=== PATIENT | female | born 1965 | race Caucasian/White ===

== ENCOUNTER 2017-08-18 09:05 | Emergency (ER) | payer BC ==
[2017-08-18 09:13] VITALS: BP 188/112
--- NOTE | 2017-08-18 09:32 | ED Physician Documentation ---
PD HPI SKIN - Stated complaint Stated Complaint: INFECTED TATTOO AREA - Chief complaint Chief Complaint: Ext Problem - History obtained from History obtained from: Patient, Family - History of Present Illness Timing - onset: How many weeks ago (1) Timing - details: Gradual onset, Still present Location: RUE Quality / character: Itchy, Discolored, Raised Similar symptoms before: Has not had sx before Recently seen: Not recently seen - Additional information Additional information: Patient is a 51 year old female with no significant past medical history who is presenting to the emergency department for skin rash. patient states that she was tattooed about a few weeks ago. patient did her normal care and it seemed fine. Patient states that for the last week she has had a rash over the tattoo area. patient states that it it itchy, but not painful. Patient denies any fevers or chills. Review of Systems Constitutional: denies: Fever, Chills Eyes: reports: Reviewed and negative Ears: reports: Reviewed and negative Nose: reports: Reviewed and negative Throat: reports: Reviewed and negative Cardiac: reports: Reviewed and negative Respiratory: denies: Dyspnea, Wheezing GI: reports: Reviewed and negative Skin: reports: Rash Musculoskeletal: denies: Extremity pain Neurologic: denies: Generalized weakness, Focal weakness, Numbness Immunocompromised: denies: Immunocompromised PD PAST MEDICAL HISTORY - Past Surgical History Past Surgical History: No - Present Medications Home Medications: Ambulatory Orders Medication Instructions Recorded Confirmed Hydrocortisone 1% Oint 1 applic TOP TID #28 gm 08/18/17 [Hydrocortisone] - Allergies Allergies/Adverse Reactions: Allergies Allergy/AdvReac Type Severity Reaction Status Date / Time No Known Drug Allergies Allergy Verified 01/29/16 10:40 - Social History Does the pt smoke?: No Smoking Status: Never smoker PD ED PE NORMAL - Vitals Vital signs reviewed: Yes - General General: Alert and oriented X 3, No acute distress - HEENT HEENT: Atraumatic, PERRL, Pharynx benign - Neck Neck: Supple, no meningeal sign, No JVD - Cardiac Cardiac: RRR, No murmur - Respiratory Respiratory: No respiratory distress, Clear bilaterally - Abdomen Abdomen: Soft, Non tender, Non distended - Neuro Neuro: Alert and oriented X 3, No motor deficit, No sensory deficit, Normal speech PD ED PE EXPANDED - Derm Derm: Rash (raised rash on right forearm over the tattooed area, consistent with dermatitis, unlikely infectious in nature.) Results - Vitals Vitals: Vital Signs - 24 hr 08/18/17 09:08 Temperature 36.5 C Heart Rate 92 Respiratory 17 Rate Blood Pressure 188/112 H O2 Saturation 100 Oxygen O2 Source Room air PD MEDICAL DECISION MAKING - ED course Complexity details: reviewed old records, re-evaluated patient, considered differential, d/w patient, d/w family ED course: patient was seen and examined at bedside. Patient's findings were consistent with a contact dermatitis, and did not appear to be infectious in nature. Prescriptions were written. Patient required no further work and was stable for discharge with outpatient follow up. Departure - Departure Disposition: 01 Home, Self Care Clinical Impression: Dermatitis Condition: Good Instructions: ED Dermatitis Non Specific Rash Follow-Up: Sandi Collazo ND [Primary Care Provider] - Within 1 week Prescriptions: Hydrocortisone 1% Oint [Hydrocortisone] 1 applic TOP TID #28 gm Comments: Your symptoms today are being caused by dermatitis. You should apply steroid cream to half of the lesion, and topical benadryl cream to the other section to see what has a better response. You should call your doctor today to schedule a follow up appointment to re-evaluate the wound. You may return to the emergency department at any time for new, worsening or uncontrollable symptoms. Discharge Date/Time: 08/18/17 09:38
== END 2017-08-18 09:38 | disposition home or self-care (01) ==
LOC: ED 09:05
DX: L25.9 Unspecified contact dermatitis, unspecified cause (principal)
CPT/HCPCS: 99283

== ENCOUNTER 2019-04-07 11:45 | Outpatient (CLI) | payer BC | END 2019-04-07 11:46 | disposition critical access hospital (66) | LOC: EMS 11:45 | PROVIDERS: ATTEND Surgery | DX: M79.604 Pain in right leg (principal); R20.2 Paresthesia of skin | CPT/HCPCS: A0425; A0429 ==

== ENCOUNTER 2019-04-07 12:17 | Emergency (ER) | payer BC ==
[2019-04-07] MEDS ORDERED: KETOROLAC 30 MG/ML VIAL IVP STA (12:29)
--- NOTE | 2019-04-07 12:33 | ED Physician Documentation ---
PD HPI BACK PAIN - Stated complaint Stated Complaint: BACK PX - History obtained from History obtained from: Patient, EMS - History of Present Illness Timing - onset: Today (53-year-old woman without any significant past medical history or history of back issues with this starting to feel some anterior right thigh soreness this morning without Any specific injury. It progressed and she got in the shower to see if he would help at which point her leg kind of gave out from under her and she could not walk. She really has minimal pain at rest only hurts if she sits up or moves. The pain is really more in the thigh than the back. She denies weakness, numbness of the legs or saddle area, she did have some tingling in her hands when the pain was severe. No fevers. No recent illnesses.) Review of Systems Ten Systems: 10 systems reviewed and negative Constitutional: denies: Fever, Chills GI: denies: Abdominal Pain, Nausea, Vomiting : denies: Dysuria, Frequency PD PAST MEDICAL HISTORY - Past Medical History Past Medical History: No - Past Surgical History Past Surgical History: No - Present Medications Home Medications: Ambulatory Orders Medication Instructions Recorded Confirmed Gabapentin [Neurontin] 300 mg PO TID #60 capsule 04/07/19 Ibuprofen [Motrin] 800 mg PO Q8H PRN #30 tablet 04/07/19 Progesterone, Micronized 100 mg PO 04/07/19 [Progesterone] - Allergies Allergies/Adverse Reactions: Allergies Allergy/AdvReac Type Severity Reaction Status Date / Time No Known Drug Allergies Allergy Verified 01/29/16 10:40 - Social History Does the pt smoke?: No Smoking Status: Never smoker - Family History Family history: reports: Non contributory PD ED PE NORMAL - Vitals Vital signs reviewed: Yes - General General: Alert and oriented X 3, Other (She is comfortable laying in bed but is resistant to any motion because she is worried that it will hurt.) - Cardiac Cardiac: RRR, No murmur - Respiratory Respiratory: No respiratory distress, Clear bilaterally - Abdomen Abdomen: Other (Very mild left lower pelvic tenderness) - Back Back: No CVA TTP, No spinal TTP, Other (There is no specific tenderness of the spine or low back.) - Extremities Extremities: Other (I am unable to elicit any tenderness of the leg, hip, calf. There is no swelling or asymmetric edema. She has pain more than weakness that limits her in knee flexion. She has equal and symmetric strength at the ankles both in flexion and extension. She has a diminished but not absent right L4 reflex compared to the left but Achilles reflexes are symmetric.) - Neuro Neuro: Alert and oriented X 3, Normal speech - Psych Psych: Normal mood, Normal affect Results - Vitals Vitals: Vital Signs - 24 hr 04/07/19 12:33 Temperature 37.0 C Heart Rate 99 Respiratory 18 Rate Blood Pressure 165/92 H O2 Saturation 97 Oxygen O2 Source Room air - Labs Labs: Laboratory Tests 04/07/19 04/07/19 12:39 12:39 WBC 5.7 RBC 4.46 Hgb 14.4 Hct 42.6 MCV 95.5 MCH 32.3 H MCHC 33.8 RDW 12.9 Plt Count 278 MPV 9.0 Neut # (Auto) 3.9 Lymph # (Auto) 1.1 L Cassia # (Auto) 0.5 Eos # (Auto) 0.1 Baso # (Auto) 0.1 Absolute Nucleated RBC 0.00 Nucleated RBC % 0.0 Sodium 141 Potassium 3.9 Chloride 103 Carbon Dioxide 24 Anion Gap 14.0 H BUN 10 Creatinine 0.5 Estimated GFR (MDRD) 130 Glucose 100 Calcium 9.7 Total Bilirubin 1.2 H AST 42 ALT 52 Alkaline Phosphatase 71 Total Protein 8.3 H Albumin 4.6 Globulin 3.7 Albumin/Globulin Ratio 1.2 Lipase 38 - Rads (name of study) CT L spine Radiology: EMP read contemporaneously (Right L4-L5 foraminal/extraforaminal protrusion abutting/impinging the right L4 nerve root.) PD MEDICAL DECISION MAKING - ED course ED course: This is a 53-year-old woman with acute leg pain most consistent with a lumbar disc herniation noting a diminished L4 reflex on the right confirmed on CT. After Toradol she was pain-free and functional. Departure - Departure Disposition: 01 Home, Self Care Clinical Impression: Lumbosacral radiculopathy at L4 Condition: Good Record reviewed to determine appropriate education?: Yes Instructions: Lumbar Radiculopathy Prescriptions: Gabapentin [Neurontin] 300 mg PO TID #60 capsule Ibuprofen [Motrin] 800 mg PO Q8H PRN #30 tablet PRN Reason: PAIN &/OR FEVER Comments: Follow-up with your primary care physician, start with physical therapy. If that is not successful for improving your pain after while her/she may refer you to a spinal specialist. Your blood pressure was elevated today on check into the emergency department. This does not mean that you have hypertension, it is a common phenomenon to come to the emergency department and have elevated blood pressure. I recommend that you see your primary care physician within the week to have it rechecked when you are feeling better. Forms: Activity restrictions
[2019-04-07 12:46] LABS: BASOPHILS # (AUTO) 0.1 10^3/uL (0.0-0.1); BASOPHILS % (AUTO) 2.1 %; EOSINOPHILS # (AUTO) 0.1 10^3/uL (0.0-0.7); EOSINOPHILS % (AUTO) 1.2 %; HGB - HEMOGLOBIN 14.4 g/dL (12.0-16.0); LYMPHOCYTES # (AUTO) 1.1 10^3/uL (1.5-3.5); MEAN CORPUSCULAR HEMOGLOBIN 32.3 pg (27.0-31.0); MEAN CORPUSCULAR HGB CONC 33.8 g/dL (32.0-36.0); MEAN CORPUSCULAR VOLUME 95.5 fL (81.0-99.0); MONOCYTES # (AUTO) 0.5 10^3/uL (0.0-1.0); MONOCYTES % (AUTO) 9.1 %; NEUTROPHILS # (AUTO) 3.9 10^3/uL (1.5-6.6); NEUTROPHILS % (AUTO) 68.1 %; PLT - PLATELET COUNT 278 10^3/uL (130-450); RED BLOOD COUNT 4.46 10^6/uL (4.20-5.40); RED CELL DISTRIBUTION WIDTH 12.9 % (12.0-15.0); WHITE BLOOD COUNT 5.7 x10^3/uL (4.8-10.8)
[2019-04-07 12:57] LABS: ALBUMIN 4.6 g/dL (3.2-5.5); ALBUMIN/GLOBULIN RATIO 1.2 (1.0-2.2); BILIRUBIN,TOTAL 1.2 mg/dL (0.2-1.0); CALCIUM 9.7 mg/dL (8.5-10.3); CREATININE 0.5 mg/dL (0.4-1.0); TOTAL PROTEIN 8.3 g/dL (6.7-8.2)
--- NOTE | 2019-04-07 13:34 | CT Report ---
Reason: back/leg pain, R L4 diminished reflex Procedure Date: 04/07/2019 Accession Number: [id number] / [id number] Procedure: CT - LUMBAR SPINE WO CPT Code: FULL RESULT: EXAM: CT LUMBAR SPINE WITHOUT CONTRAST EXAM DATE: 04/07/2019 01:04 PM. CLINICAL HISTORY: Back/leg pain, R L4 diminished reflex. COMPARISONS: None. TECHNIQUE: Thin-section axial images were acquired of the lumbar spine from T12 to S1 without contrast. Post-processing: Coronal and sagittal reformats. Other: None. In accordance with CT protocol optimization, one or more of the following dose reduction techniques were utilized for this exam: automated exposure control, adjustment of mA and/or KV based on patient size, or use of iterative reconstructive technique. FINDINGS: Alignment: No scoliosis or spondylolisthesis. Bones: Five jje-[id number] lumbar vertebral bodies are present. No fractures or bone lesions. Disk Levels/Facets: T12-L1: Unremarkable. L1-L2: Unremarkable. L2-L3: Unremarkable. L3-L4: Unremarkable. L4-L5: Right foraminal/extraforaminal protrusion measures 18 mm transverse, 5 mm in thickness, abutting/impinging on the exiting right L4 nerve root, correlate with right L4 radiculopathy. L5-S1: Unremarkable. Musculature: Normal. No fatty atrophy. Other: The visualized retroperitoneum is unremarkable. IMPRESSION: Right L4-L5 foraminal/extraforaminal protrusion abutting/impinging the right L4 nerve root, could be correlated with right L4 radiculopathy. RADIA
[2019-04-07 14:01] VITALS: BP 140/88
== END 2019-04-07 14:01 | disposition home or self-care (01) ==
LOC: EDUNIT# → ED 12:17
DX: M54.17 Radiculopathy, lumbosacral region (principal); R03.0 Elevated blood-pressure reading, without diagnosis of hypertension
CPT/HCPCS: 36415; 72131; 80053; 83690; 85025; 96374; 99283

== ENCOUNTER 2019-08-22 14:18 | Emergency (ER) | payer BC ==
[2019-08-22 14:35] VITALS: BP 167/100
== END 2019-08-22 15:50 | disposition left against medical advice (07) ==
LOC: ED 14:18
DX: Z53.21 Procedure and treatment not carried out due to patient leaving prior to being seen by health care provider (principal)

== ENCOUNTER 2023-01-04 08:35 | Emergency (ER) | payer BC, OTHER ==
--- NOTE | 2023-01-04 09:11 | ED Physician Documentation ---
PD HPI LOWER EXT INJURY - Stated complaint Stated Complaint: LT ANKLE INJ - Chief complaint Chief Complaint: Ext Problem - History obtained from History obtained from: Patient, Family - History of Present Illness PD HPI LOW EXT INJURY LOCATION: Left, Ankle Type of injury: Fall, Twist Where injury occurred: Home Timing - onset: Last night Timing - duration: Hours Timing - details: Abrupt onset, Still present Improved by: Rest, Ice, Immobilization Worsened by: Moving, Palpating Associated symptoms: Swelling. No: Weakness, Numbness, Tingling Contributing factors: No: Anticoagulated, Prior ortho surgery, Prosthetic joint, Work related Similar symptoms before: Has not had sx before Recently seen: Not recently seen - Additional information Additional information: 57-year-old Vania Glover was walking downstairs last night when she missed a step when her dogs went in front of her and she landed flat on her left foot with some platform flip-flops on and twisted her ankle. She is unable to bear weight and has pain radiating up to her knee. Review of Systems Constitutional: denies: Fever Ears: denies: Ear pain Nose: denies: Congestion Throat: denies: Sore throat Respiratory: denies: Cough GI: denies: Vomiting PD PAST MEDICAL HISTORY - Past Surgical History Past Surgical History: No - Allergies Allergies/Adverse Reactions: Allergies Allergy/AdvReac Type Severity Reaction Status Date / Time No Known Drug Allergies Allergy Verified 08/22/19 14:35 - Social History Does the pt smoke?: No Smoking Status: Never smoker Does the pt drink ETOH?: No Does the pt have substance abuse?: No - Immunizations Immunizations are current?: Yes PD ED PE NORMAL - Vitals Vital signs reviewed: Yes (hypertensive ) - General General: Alert and oriented X 3, No acute distress, Well developed/nourished - HEENT HEENT: Atraumatic, PERRL, EOMI - Respiratory Respiratory: No respiratory distress - Derm Derm: Normal color, Warm and dry, No rash - Extremities Extremities: No deformity, Other (Swelling to the ankle is present. Tenderness is present to the distal fibular and increases in tendeness with more proximal palpation. There does appear to be tenderness to the lateral malleolus ) - Neuro Neuro: Alert and oriented X 3, bookkeeping teacher 2-12 intact, No motor deficit, No sensory deficit, Normal speech Eye Opening: Spontaneous Motor: Obeys Commands Verbal: Oriented GCS Score: 15 - Psych Psych: Normal mood, Normal affect Results - Vitals Vitals: Vital Signs - 24 hr 01/04/23 01/04/23 08:59 12:26 Temperature 36.8 C Heart Rate 78 73 Respiratory 18 20 Rate Blood Pressure 184/92 H 177/84 H O2 Saturation 99 100 Oxygen O2 Source Room air - Rads (name of study) tib/fib Relevant Findings:: Prelim report reviewed (Impression: 1. Posterior malleolus fracture proximal fibular fracture.), EMP independent interpretation of test Procedures - Splint (location) - Minor left leg Splint applied by: HowGood Type of splint: Fiberglass, Long leg, Posterior PD Medical Decision Making - ED course Complexity details: reviewed results, re-evaluated patient, considered differential, d/w patient, d/w family ED course: 57-year-old female with a fall down 3 steps landing hard on her left foot has a fracture to the medial malleolus and the proximal fibula. She is placed in a long-leg fiberglass splint and onto crutches and instructed to follow-up with orthopedics Departure - Departure Disposition: 01 Home, Self Care Clinical Impression: Fibular upper end fracture Qualifiers: Encounter type: initial encounter Fracture type: closed Fracture morphology: unspecified fracture morphology Laterality: left Qualified Code(s): S82.832A - Other fracture of upper and lower end of left fibula, initial encounter for closed fracture Fracture of malleolus of left ankle Qualifiers: Encounter type: initial encounter Fracture type: closed Qualified Code(s): S82.892A - Other fracture of left lower leg, initial encounter for closed fracture Condition: Stable Instructions: ED Fx Lower Ext Follow-Up: Giovanny Roland MD [Provider Admit Priv/Credential] - Comments: Vania, today it looks like you have 2 fractures in your left leg. There is a fracture in the proximal fibula which is up by your knee on the outside and there is a second fracture through the ankle. We have placed you into a long- leg posterior splint and we are expecting you to not bear weight. You will need to follow-up with orthopedics in the coming week. Call Dr. Winston office on Thursday . Discharge Date/Time: 01/04/23 12:50
--- NOTE | 2023-01-04 09:29 | XRAY Report ---
PROCEDURE: Ankle 3 View LT INDICATIONS: fall lateral swelling pain TECHNIQUE: 3 views of the ankle were acquired. COMPARISON: None. FINDINGS: Bones: Mildly displaced fracture of the medial malleolus. Soft tissues: No tibiotalar joint effusion. Achilles tendon appears normal. IMPRESSION: Medial malleolus fracture. Reviewed by: Neo Rand MD on 01/04/2023 9:28 AM PDT Approved by: Neo Rand MD on 01/04/2023 9:28 AM PDT Station ID: [id number]
[2023-01-04] MEDS ORDERED: IBUPROFEN 600 MG TABLET PO STA (10:21)
--- NOTE | 2023-01-04 10:53 | XRAY Report ---
PROCEDURE: Tib/Fib LT INDICATIONS: medial malleolar fx prox fibular pain TECHNIQUE: 2 views of the tibia and fibula were acquired. COMPARISON: None. FINDINGS: Bones: Mildly displaced oblique fracture of the proximal fibula. Mildly displaced fracture of the po sterior malleolus. No suspicious bony lesions. Soft tissues: No suspicious soft tissue calcifications or masses. IMPRESSION: 1. Posterior malleolar fracture. 2. Proximal fibular fracture. Reviewed by: Neo Rand MD on 01/04/2023 10:52 AM PDT Approved by: Neo Rand MD on 01/04/2023 10:52 AM PDT Station ID: [id number]
[2023-01-04 12:28] VITALS: BP 177/84
== END 2023-01-04 12:50 | disposition home or self-care (01) ==
LOC: ED 08:35
DX: S82.832A Other fracture of upper and lower end of left fibula, initial encounter for closed fracture (principal); S82.52XA Displaced fracture of medial malleolus of left tibia, initial encounter for closed fracture; W10.8XXA Fall (on) (from) other stairs and steps, initial encounter; Y93.89 Activity, other specified; Y92.008 Other place in unspecified non-institutional (private) residence as the place of occurrence of the external cause
CPT/HCPCS: 29515; 73590; 73610; 99283; A9270

== ENCOUNTER 2023-01-05 11:33 | Emergency (ER) | payer OTHER ==
--- NOTE | 2023-01-05 11:53 | ED Physician Documentation ---
History of Present Illness - Stated complaint Stated Complaint: LT LEG FRACTURE - Chief complaint Chief Complaint: Ext Problem - Additonal information Additional information: 57-year-old female presents emergency department requesting reevaluation of her left lower extremity splint. Was seen yesterday after a fall. Diagnosed with proximal fibular and a distal medial malleolus fracture. She is placed in a long-leg posterior splint but since discharge from the emergency department it has slipped, become uncomfortable and no longer holding appropriate position. Reports pain is being well controlled with Advil. She is neurovascularly intact. Review of Systems Musculoskeletal: reports: Extremity pain PD PAST MEDICAL HISTORY - Past Surgical History Past Surgical History: No - Allergies Allergies/Adverse Reactions: Allergies Allergy/AdvReac Type Severity Reaction Status Date / Time No Known Drug Allergies Allergy Verified 08/22/19 14:35 - Social History Does the pt smoke?: No Smoking Status: Never smoker Does the pt drink ETOH?: No Does the pt have substance abuse?: No - Immunizations Immunizations are current?: Yes PD ED PE EXPANDED - Extremities Extremities: Left leg (Tenderness with palpation of the proximal fibula and medial malleoli region. Mild ecchymosis. 2+ DP pulse. Neurovascularly intact. Mild swelling noted of the foot. No posterior calf pain tenderness.) Results - Vitals Vitals: Vital Signs - 24 hr 01/05/23 11:44 Temperature 36.2 C L Heart Rate 103 H Respiratory 16 Rate Blood Pressure 182/88 H O2 Saturation 100 Oxygen O2 Source Room air PD Medical Decision Making - ED course Complexity details: reviewed results, re-evaluated patient, d/w patient ED course: 57-year-old female presents emergency department requesting her left leg splint be addressed. It was placed yesterday after a fall in which she was found to have proximal fibular and a medial malleolus fracture. The splint has become positioned and appropriately since discharge from the ER. Here in the ER nursing staff did place a new long-leg splint and on reevaluation patient reports that it feels better. She is neurovascularly intact. On exam she has no concerns for compartment syndrome. The leg foot are well perfused. No posterior calf pain tenderness. She is scheduled to see Dr. Roland this upcoming Thursday. The usual emergent return precautions were discussed Departure - Departure Disposition: Home, Self Care Clinical Impression: Cast discomfort Condition: Stable Comments: Vanai you came to the emergency department because the splint that was placed yesterday has become malpositioned. We did replace this today. Is important that you continue to follow closely with your primary care doctor to obtain the appropriate referral to orthopedics. This is a nonweightbearing injury until seen and cleared by orthopedic doctor. Return to the emergency department should you find any discomfort with your current splint, you lose sensation in your feet or toes or have unexplained fevers.
[2023-01-05 13:11] VITALS: BP 139/72
== END 2023-01-05 13:14 | disposition home or self-care (01) ==
LOC: ED 11:33
DX: Z47.89 Encounter for other orthopedic aftercare (principal)
CPT/HCPCS: 99282

== ENCOUNTER 2023-01-08 13:05 | Outpatient (CLI) | payer OTHER ==
--- NOTE | 2023-01-09 12:16 | CT Report ---
PROCEDURE: LOWER EXTREMITY WO - LT INDICATIONS: FX OF LEFT LEG TECHNIQUE: Noncontrast 3-mm axial sections acquired from the distal tibial shaft to the plantar calcaneus, with coronal and sagittal reformats. For radiation dose reduction, the following was used: automated exp osure control, adjustment of mA and/or kV according to patient size. COMPARISON: Left lower leg and ankle radiograph dated 01/04/2023. FINDINGS: Image quality: Excellent. Bones: As seen on previous ankle radiograph, there is an acute comminuted fracture involving medial malleolus and posterior aspect of distal tibial shaft. There is minimal posterior displacement at dis lona tibial fracture site and laterally displaced fractured fragment involving anterolateral corner of distal tibial platform. No other fracture or dislocation is seen. No suspicious bony lesions. No nimisha ss osteochondral injuries of talar dome is seen. Mild osteoarthritic changes are noted throughout lef t foot. Soft tissues: There is mild soft tissue swelling and edema surrounding distal lower leg and ankle jairo int. Small to moderate tibiotalar joint effusion is seen. No gross intra-articular loose bodies. No a bnormal soft tissue calcifications. No full-thickness ankle tendon rupture. Visualized plantar fascia is intact. Impression: 1. Acute comminuted and minimally displaced fractures involving base of medial malleolus, posterior m alleolus and anterolateral corner of distal tibia as described above. No other fracture or dislocatio n. Mild osteoarthritis throughout left foot. 2. Ankle soft tissue swelling and edema. Moderate joint effusion, no gross loose bodies. No full-thic kness tendon rupture. Reviewed by: Buster Alexander MD on 01/09/2023 11:14 AM CHANO Approved by: Buster Alexander MD on 01/09/2023 11:14 AM AKJORGE Station ID: [id number]
== END 2023-01-08 13:06 | disposition home or self-care (01) ==
LOC: DI 13:05
PROVIDERS: ATTEND Orthopaedic Surgery
DX: S82.852A Displaced trimalleolar fracture of left lower leg, initial encounter for closed fracture (principal)

== ENCOUNTER 2023-01-14 08:34 | Day surgery (SDC) | payer OTHER ==
[~2023-01-14 08:34] MED LIST: ACETAMINOPHEN 500 MG TABLET PO ONE; CELECOXIB 100 MG CAPSULE PO ONE; ceFAZolin 2 GM VIAL ONE
[2023-01-14] MEDS ORDERED: LACTATED RINGERS 1,000 ML IV ONE ×3 (09:19→14:30)
[2023-01-14] MEDS ORDERED: VANCOMYCIN 1 GM VIAL ONE ×2 (09:40→10:16)
[2023-01-14] MEDS ORDERED: BUPIVACAINE 0.25% PF 30 ML VIAL ONE (09:40)
--- NOTE | 2023-01-14 09:54 | ANESTHESIA ---
Pre-Anesthesia VS, & Labs - Diagnosis left ankle trimaeolar fracture - Procedure orif left ankle fracture Height: 5 ft Weight (kg): 59 kg Body Mass Index: 25.4 BMI Classification: Overweight - NPO >8 hours - Is Patient ?: No Home Medications and Allergies Home Medications: Ambulatory Orders Acetaminophen [Tylenol] 650 mg PO Q6H PRN 01/13/23 Ibuprofen 200 mg PO Q6HR PRN 01/13/23 Acetaminophen [Tylenol] 650 mg PO Q6H PRN 01/13/23 Ibuprofen 200 mg PO Q6HR PRN 01/13/23 Allergies/Adverse Reactions: Allergies Allergy/AdvReac Type Severity Reaction Status Date / Time No Known Drug Allergies Allergy Verified 08/22/19 14:35 Anes History & Medical History - Anesthetic History Family history of Anesthesia Complications: Denies Family history of Malignant Hyperthermia: Denies - Medical History Cardiovascular: reports: None Pulmonary: reports: None Gastrointestinal: reports: None Urinary: reports: None Neuro: reports: None Musculoskeletal: reports: None Endocrine/Autoimmune: reports: None Skin: reports: None Smoking Status: Never smoker Psychosocial: reports: Alcohol (3 glasses of wine per day) History of Cancer?: No Exam General: Alert, Oriented x3, Cooperative, No acute distress Dental: WNL Mouth Openin Fingerbreadth Neck Mobility: Normal Mallampati classification: II Thyromental Distance: 4-6 cm Mental/Cognitive Status: Alert/Oriented X3, Normal for patient Plan Anesthesia Type: General, Popliteal Block (left) Regional Block: Per Surgeon's request for Post Op pain control Consent for Procedure(s) Verified and Reviewed: Yes Code Status: Attempt Resuscitation ASA classification: 1-Healthy patient Is this case an emergency?: No
[2023-01-14] MEDS ORDERED: NALOXONE 0.4 MG/ML VIAL IVP PRN (09:55)
[2023-01-14] MEDS ORDERED: ONDANSETRON 4 MG/2 ML VIAL IVP PRN ×2 (09:55→14:26)
[2023-01-14] MEDS ORDERED: fentaNYL 100 MCG/2 ML VIAL IVP PRN (09:55)
[2023-01-14] MEDS ORDERED: HYDROmorphone 0.5 MG/0.5 ML SYRINGE IVP PRN (09:55)
[2023-01-14] MEDS ORDERED: ATROPINE ABBOJECT 1 MG/10 ML SYRINGE IVP PRN (09:55)
[2023-01-14] MEDS ORDERED: MORPHINE 2 MG/ML CARPUJECT IVP PRN (09:55)
[2023-01-14] MEDS ORDERED: LACTATED RINGERS 1,000 ML IV SCH (10:00)
[2023-01-14] MEDS ORDERED: ROPIVACAINE 0.5% PF 20 ML VIAL ONE (10:07)
[2023-01-14] MEDS ORDERED: fentaNYL 100 MCG/2 ML VIAL ONE (10:07)
[2023-01-14] MEDS ORDERED: MIDAZOLAM 2 MG/2 ML VIAL ONE (10:07)
[2023-01-14] MEDS ORDERED: PROPOFOL 200 MG/20 ML VIAL IVP ONE (10:07)
[2023-01-14] MEDS ORDERED: DEXAMETHASONE 4 MG/ML VIAL ONE (10:07)
[2023-01-14] MEDS ORDERED: SODIUM CHLORIDE 0.9% 10 ML VIAL IVP ONE (10:10)
[2023-01-14] MEDS ORDERED: ePHEDrine 50 MG/ML VIAL IVP ONE (10:54)
[2023-01-14] MEDS ORDERED: VANCOMYCIN 1 GM VIAL MC ONE ×2 (11:11)
[2023-01-14] MEDS ORDERED: HYDROmorphone 1 MG/ML CARPUJECT ONE (11:24)
[2023-01-14] MEDS ORDERED: ROCURONIUM 50 MG/5 ML VIAL ONE (11:28)
[2023-01-14] MEDS ORDERED: ONDANSETRON 4 MG/2 ML VIAL ONE ×2 (12:23→14:17)
--- NOTE | 2023-01-14 12:49 | OPERATIVE REPORT ---
Operative Report - General Procedure Date: 01/14/23 Planned Procedure: Open reduction internal fixation left ankle, syndesmosis repair Pre-Op Diagnosis: Trimalleolar fracture left ankle with syndesmosis injury. Procedure Performed: Open reduction internal fixation syndesmosis left ankle utilizing direct repair of anterior tibiofibular ligament With fiber terri suture and distal syndesmosis with 2 Arthrex tight rope suture and 2 hole plate Post Op Diagnosis: Same as preoperative diagnosis - Procedure Note Primary Surgeon: Giovanny Roland MD Secondary Surgeon: Bailey Mascorro PAC Anesthesia Provider: Cherelle Martines CRNA Anesthesia Technique: Regional block Estimated Blood Loss (mL): 25 Indications: This is a relatively healthy and active woman with a history of injury left lower leg associated with a fall. She had pain after injury, primarily over left ankle but also in the area of the proximal fibula. She had x-rays and CT evaluation. She has been splinted, elevated and nonweightbearing since injury. She has imaging that shows a D[place] malleolar fracture with nondisplaced fracture medial malleolus, posterior malleolus, chaput fracture Over anterolateral tibiaThe plan was to stabilize the left ankle, particularly focusing on the distal syndesmosis as the fractures were relatively nondisplaced except for the small avulsion fracture of the anterolateral left tibia. Patient has signed informed consent prior to surgery, agreeing to the internal fixation left ankle and proximal nondisplaced fibular fracture, slight widening of the distal syndesmosis left ankle Findings: There is small avulsion fracture anterolateral aspect of the left tibia, widening of syndesmosis with external rotation stress. The syndesmosis was unstable to clinical stress testing. The fractures are well aligned involving medial and posterior malleolus Complications: None - Other Other Information/Narrative: The patient was brought to the operating room after satisfactory popliteal block anesthesia had been obtained. She was placed in a supine position with a gel bag beneath the left hip to facilitate internal rotation. The left leg was placed on a foam bolster. A pneumatic tourniquet was applied to the proximal left thigh over cast padding. A C-arm image intensifier was used and was covered with a sterile drape. The left lower extremity was prepped and draped in sterile manner in the usual fashion. A timeout procedure was performed by the entire operating room team and all were in agreement. A longitudinal lateral incision was made beginning at the tip of the lateral malleolus and extending it proximally. The incision was carried directly down to bone exposing the lateral malleolus and distal syndesmosis. A lateral arthrotomy was made to expose the avulsion fracture of the anterolateral aspect of the tibia. The fracture bed was curetted and a fiber tack was then inserted with double-armed suture. This suture was taken through the syndesmosis and tied. Next the 2 hole Arthrex plate was applied to the lateral malleolus. The most distal hole was filled with a tight rope. The tight rope was inserted first using a K wire, cannulated drill and then the tight rope which was deployed with the Endobutton and tightened. Manual compression of the syndesmosis was then. The proximal hole was filled with a locking screw as the position of the hole did not align well with the tibia. The cannulated drill was then used just posterior to the plate to add a second more proximal tight rope. The 2 tight ropes in the anterior tibiofibular ligament repair gave good stability to the syndesmosis with no instability noted with stress test of the syndesmosis. The wound was thoroughly irrigated. Vancomycin powder 1 g was applied over the lateral malleolus and plate. The deep closure was done with 2 oh strata fix, 3-0 Monocryl for the subcuticular closure with Dermabond. A padded short leg fiberglass splint to hold the ankle in neutral dorsiflexion. A physician assistant professor of biology was medically necessary to help with prepping and draping, positioning, protection of vital structures, assistance during the procedure including wound closure, dressing and/or splinting.Patient received 2 g of Ancef intravenously. She tolerated the procedure well.
[2023-01-14] MEDS ORDERED: oxyCODONE 5 MG TABLET PO PRN (13:02)
[2023-01-14] MEDS ORDERED: CELECOXIB 100 MG CAPSULE PO PRN (13:02)
[2023-01-14] MEDS ORDERED: ONDANSETRON ODT 4 MG TABLET TL PRN (13:02)
--- NOTE | 2023-01-14 14:00 | ANESTHESIA POST OP EVALUATION ---
Anesthesia Post Eval - Post Anesthesia Eval Vitals: Last Vital Signs Temp 36.7 C 01/14/23 13:45 Pulse 80 01/14/23 13:45 Resp 14 01/14/23 13:45 BP 142/71 H 01/14/23 13:45 Pulse Ox 95 01/14/23 13:45 O2 Flow Rate CV Function Including HR & BP: Stable Pain Control: Satisfactory Nausea & Vomiting: Negative Mental Status: Baseline Respiratory Status: Airway Patent Hydration Status: Satisfactory Anesthesia Complications: None
[2023-01-14] MEDS ORDERED: ACETAMINOPHEN 500 MG TABLET PO PRN (15:00)
[2023-01-14] MEDS ORDERED: oxyCODONE 5 MG TABLET ONE (15:46)
[2023-01-14 19:01] VITALS: BP 154/83
--- NOTE | 2023-01-15 08:11 | XRAY Report ---
PROCEDURE: OR C-Arm Procedure INDICATIONS: LEFT ANKLE ORIF FLUORO TIME: 0:10 MIN TECHNIQUE: 2 intraoperative fluoroscopic images obtained. COMPARISON: None. FINDINGS: 2 intraoperative fluoroscopic images from ankle fixation. IMPRESSION: Intraprocedural fluoroscopy was provided for guidance and anatomic localization. Please see the proc edure report for further details. Reviewed by: Rob Kunz MD on 01/15/2023 8:10 AM PDT Approved by: Rob Kunz MD on 01/15/2023 8:10 AM PDT Station ID: [id number]
== END 2023-01-14 19:25 | disposition home or self-care (01) ==
LOC: SDS 08:34 → MS2 15:56 → SDS 19:25
PROVIDERS: ATTEND Orthopaedic Surgery
DX: S82.855A Nondisplaced trimalleolar fracture of left lower leg, initial encounter for closed fracture (principal)
CPT/HCPCS: 27822; 27829; A9270; C1713; J1170; J2795; J3370; J7120

== ENCOUNTER 2023-02-26 08:00 | Outpatient (CLI) | payer OTHER ==
--- NOTE | 2023-02-26 15:53 | XRAY Report ---
PROCEDURE: Ankle 3 View LT INDICATIONS: LEFT ANKLE ORIF TECHNIQUE: 3 views of the ankle were acquired. COMPARISON: 3 view left ankle x-ray series and two-view left tibia and fibula x-ray series 01/04/2023 . FINDINGS: Bones: Posterior and medial malleolar fractures redemonstrated. Postsurgical changes compatible with tibiofibular arthrodesis. No acute fractures or dislocations. Ankle mortise is normally aligned. N o suspicious bony lesions. Soft tissues: No tibiotalar joint effusion. Achilles tendon appears normal. IMPRESSION: Posterior and medial malleoli fractures redemonstrated. Tibiofibular arthrodesis. Reviewed by: Kirstie Buitrago MD, PhD on 02/26/2023 3:52 PM PDT Approved by: Kirstie Buitrago MD, PhD on 02/26/2023 3:52 PM PDT Station ID: [id number]
== END 2023-02-26 23:59 | disposition home or self-care (01) ==
LOC: DI.WOS 08:00
PROVIDERS: ATTEND Physician Assistant Surgical
DX: S82.855A Nondisplaced trimalleolar fracture of left lower leg, initial encounter for closed fracture (principal); Z98.1 Arthrodesis status

== ENCOUNTER 2023-04-16 08:00 | Outpatient (CLI) | payer OTHER ==
--- NOTE | 2023-04-16 14:01 | XRAY Report ---
PROCEDURE: Ankle 3 View LT INDICATIONS: LEFT ANKLE ORIF TECHNIQUE: 3 views of the ankle were acquired. COMPARISON: None. FINDINGS: Bones: No fractures or dislocations. Ankle mortise is normally aligned. No suspicious bony lesions . Prior ankle ORIF, without hardware complication. Osteopenia. Soft tissues: No tibiotalar joint effusion. Achilles tendon appears normal. IMPRESSION: Prior ankle ORIF, without hardware convocation. Reviewed by: Moisés Jaeger on 04/16/2023 2:00 PM PDT Approved by: Moisés Jaeger on 04/16/2023 2:00 PM PDT Station ID: [id number]
== END 2023-04-16 23:59 | disposition home or self-care (01) ==
LOC: DI.WOS 08:00
PROVIDERS: ATTEND Orthopaedic Surgery
DX: S82.855D Nondisplaced trimalleolar fracture of left lower leg, subsequent encounter for closed fracture with routine healing (principal)

== ENCOUNTER 2023-07-21 09:15 | Outpatient (CLI) | payer OTHER ==
--- NOTE | 2023-07-21 16:34 | XRAY Report ---
PROCEDURE: Ankle 3 View LT INDICATIONS: LEFT ANKLE ORIF TECHNIQUE: 3 views of the ankle were acquired. COMPARISON: April 16, 2023. FINDINGS: Bones: No fractures or dislocations. Ankle mortise is normally aligned. No suspicious bony lesions . Soft tissues: No tibiotalar joint effusion. Achilles tendon appears normal. Previously noted internal fixation hardware involving the medial and lateral malleolus remain stable. Diffuse osteopenia is present. IMPRESSION: 1. No evidence for acute osseous abnormality involving the left ankle. 2. Stable appearance of internal fixation hardware. 3. Diffuse osteopenia. Reviewed by: Jaime Pino MD on 07/21/2023 4:33 PM PST Approved by: Jaime Pino MD on 07/21/2023 4:33 PM PST Station ID: [id number]
== END 2023-07-21 23:59 | disposition home or self-care (01) ==
LOC: DI.WOS 09:15
PROVIDERS: ATTEND Orthopaedic Surgery
DX: S82.855D Nondisplaced trimalleolar fracture of left lower leg, subsequent encounter for closed fracture with routine healing (principal); M85.872 Other specified disorders of bone density and structure, left ankle and foot
CPT/HCPCS: 87070; 87205

== ENCOUNTER 2023-07-21 10:23 | Outpatient (CLI) | payer OTHER | END 2023-07-21 10:24 | disposition home or self-care (01) | LOC: LAB.R 10:23 | PROVIDERS: ATTEND Orthopaedic Surgery | DX: S82.855A Nondisplaced trimalleolar fracture of left lower leg, initial encounter for closed fracture (principal) | CPT/HCPCS: 87070; 87205 ==